=== PATIENT | male | born 1955 | race American Indian/Alaskan Native ===

== ENCOUNTER 2021-11-21 06:48 | Day surgery (SDC) | payer BC ==
[2021-11-16 13:28] LABS: Hematocrit 46.8 % (35.5-45.6); Hemoglobin 15.3 gm/dl (11.8-15.2); Mean Corpuscular HGB Conc 33 % (32-34); Mean Corpuscular Volume 86 fl (84-94); Platelet Count 252 K/mm3 (140-440); Red Blood Count 5.48 M/mm3 (3.65-5.03); Red Cell Distribution Width 14.5 % (13.2-15.2)
[2021-11-16 13:53] LABS: Alanine Aminotransferase 21 units/L (7-56); BUN/Creatinine Ratio 18; Blood Urea Nitrogen 18 mg/dL (9-20); Calcium 9.5 mg/dL (8.4-10.2); Hemolysis Index 11
[~2021-11-21 06:48] MED LIST: LACTATED RINGERS 1,000 ML IV SCH; MIDAZOLAM 2 MG/2 ML INJ IV NR
--- NOTE | 2021-11-21 07:41 | Anesthesia Consultation ---
Anesthesia Consult and Med Hx Date of service: 11/21/21 - Airway Anesthetic Teeth Evaluation: Good ROM Head & Neck: Adequate Mental/Hyoid Distance: Adequate Mallampati Class: Class II Intubation Access Assessment: Probably Good - Pre-Operative Health Status ASA Pre-Surgery Classification: ASA3 Proposed Anesthetic Plan: General - Pulmonary Hx Smoking: No Hx Respiratory Symptoms: No - Cardiovascular System Hx Hypertension: Yes Hx Heart Attack/AMI: No Hx Percutaneous Transluminal Coronary Angioplasty (PTCA): No Hx Cardia Arrhythmia: Yes (PVCs controlled with metoprolol) Hx Pacemaker: No Hx Internal Defibrillator: No Hx Valvular Heart Disease: No (mild hypertrophic cardiomyopathy; normal EF) - Central Nervous System CVA: No - Endocrine Hx Renal Disease: No Hx Liver Disease: No Hx Insulin Dependent Diabetes: No Hx Non-Insulin Dependent Diabetes: No Hx Thyroid Disease: No - Other Systems Hx Obesity: Yes (BMI 35) - Additional Comments Anesthesia Medical History Comments: No hx anesthetic complications. Most recent cardiac eval and studies on chart reviewed. : TTE normal EF, mild asymmetric LVH; negative stress test w/ frequent PVCs. 09/2021: holter monitor with low PVC burden.
--- NOTE | 2021-11-21 07:41 | Anesthesia Day of Surgery ---
Anesthesia Day of Surgery - Day of Surgery Patient Examined: Yes Patient H&P Reviewed: Yes Patient is NPO: Yes Beta Blockers: Yes
[2021-11-21] MEDS ORDERED: ONDANSETRON 4 MG/2 ML INJ IV PRN (08:00)
[2021-11-21] MEDS ORDERED: ceFAZolin/STERILE WATER 2 GM/20 ML SYRINGE IV NR (08:00)
[2021-11-21] MEDS ORDERED: GENTAMICIN/NS 80 MG/100 ML 100 ML IV SCH (08:00)
[2021-11-21] MEDS ORDERED: HYDROcodone/ACETAMINOPHEN 5-325 MG TAB PO PRN (08:00)
[2021-11-21] MEDS ORDERED: HYDROmorphone 0.5 MG/0.5 ML INJ IV PRN (08:00)
[2021-11-21] MEDS ORDERED: LIDOCAINE MPF (2%) 20 MG/1 ML VIAL 5 ML ONE (09:18)
[2021-11-21] MEDS ORDERED: ONDANSETRON 4 MG/2 ML INJ ONE (09:18)
[2021-11-21] MEDS ORDERED: propofoL 200 MG/20 ML VIAL IV ONE (09:19)
[2021-11-21] MEDS ORDERED: fentaNYL 100 MCG/2 ML INJ ONE (09:19)
[2021-11-21] MEDS ORDERED: LACTATED RINGERS 1,000 ML ONE (09:50)
[2021-11-21] MEDS ORDERED: WATER FOR IRRIG STERILE 2000 ML IR ONE (09:52)
--- NOTE | 2021-11-21 10:04 | Short Stay Summary ---
Short Stay Documentation Date of service: 11/21/21 - History H&P: obtained from office - Allergies and Medications Current Medications: Allergies No Known Allergies Allergy (Verified 11/14/21 16:03) Home Medications Medication Instructions Recorded Confirmed Last Taken Type Losartan/Hydrochlorothiazide 1 each PO DAILY 11/14/21 11/14/21 Unknown History [Losartan-Hctz 100-12.5 mg Tab] Metoprolol [Lopressor] 25 mg PO DAILY 11/14/21 11/14/21 Unknown History Active Medications Hydrocodone Bitart/Acetaminophen (Hydrocodone/Acetaminophen 5-325 Mg Tab) 2 each PO ONCE PRN PRN Reason: Pain, Moderate (4-6) Stop: 11/21/21 18:00 Cefazolin Sodium (Cefazolin/Sterile Water 2 Gm/20 Ml Syringe) 2 gm IV PREOP NR Stop: 11/21/21 19:00 Hydromorphone HCl (Hydromorphone 0.5 Mg/0.5 Ml Inj) 0.5 mg IV Q10MIN PRN PRN Reason: Pain , Severe (7-10) Stop: 11/21/21 18:00 Lactated Ringer's (Lactated Ringers) 1,000 mls @ 100 mls/hr IV DIRECT JULIENNE Stop: 11/21/21 23:59 Gentamicin Sulfate/Sodium Chloride (Gentamicin/Ns 80 Mg/100 Ml) 100 mls @ 200 mls/hr IV PREOP JULIENNE; Protocol Stop: 11/21/21 19:00 Midazolam HCl (Midazolam 2 Mg/2 Ml Inj) 2 mg IV PREOP NR Stop: 11/21/21 23:59 Ondansetron HCl (Ondansetron 4 Mg/2 Ml Inj) 4 mg IV ONCE PRN PRN Reason: Nausea And Vomiting Stop: 11/21/21 18:00 - Brief post op/procedure progress note Date of procedure: 11/21/21 Pre-op diagnosis: BPH, ELEVATED PSA, RT PROSTATE LESION ON MRI Post-op diagnosis: same Procedure: CYSTO, RPG, PUS 80CC, BX Anesthesia: GETA Surgeon: ZOEY ABREU Pathology: list (PROSTATE CORES) Specimen disposition: to lab Condition: stable - Hospital course Hospital course: POST OP INFO, BACTRIM & ULTRAM ON CHART - Disposition Condition at discharge: Stable Disposition: 01 HOME / SELF CARE / HOMELESS Short Stay Discharge Plan Follow up with: BABS MUNOZ MD [Primary Care Provider] - 7 Days
[2021-11-21] MEDS ORDERED: hydrALAZINE 20 MG/1 ML INJ IV NR (10:12)
[2021-11-21] MEDS ORDERED: hydrALAZINE 20 MG/1 ML INJ ONE (10:16)
--- NOTE | 2021-11-21 10:17 | Operative Report ---
DATE OF SURGERY: 11/21/2021 PREOPERATIVE DIAGNOSES: Elevated PSA, right prostate lesion on MRI, BPH. POSTOPERATIVE DIAGNOSES: Elevated PSA, right prostate lesion on MRI, BPH. PROCEDURES: Cystoscopy, bilateral retrograde pyelograms, prostate ultrasound and biopsy (80 grams). SURGEON: Melo Casillas MD ANESTHESIA: General. ESTIMATED BLOOD LOSS: Minimal. FLUIDS: Crystalloid. COMPLICATIONS: No complications. INDICATIONS: This patient is a 66-year-old gentleman, had been followed by my service for BPH and elevated PSA. He was previously seen by Dr. Bruce Chamorro where he underwent prostate biopsy years ago. Recent MRI suggested a right sided lesion. He presents now for further evaluation. He also has some BPH. Risks, benefits, complications were explained. DESCRIPTION OF PROCEDURE: The patient was taken to the operative suite, placed in supine position. After adequate general anesthesia, placed in the dorsal lithotomy position, prepped and draped in a sterile fashion. Pancystourethroscopy was performed with a 22-[place] Stor[place] cystoscope, no urethral abnormalities. His prostate displayed trilobar prostatic obstruction, moderate sized median lobe. No tumors or stones in the bladder. Both ureteral orifices in normal position. Bilateral retrograde pyelograms were obtained with an 8-[place] catheter and 8 mL of contrast. No filling defects or obstruction. Transrectal ultrasound, transverse and longitudinal imaging revealed no lesions and an 80-gram gland. Saturation biopsies were obtained, 2 cores per template using a 12-core template, base, mid and apex. The patient tolerated the procedure well. His rectal exam, it was BPH, but no lesions. He was extubated and taken to recovery room. He will go home on Bactrim and Ultram and follow up in the office. TID: [id number] RECEIPT: [id number] NIC/JOSSUE
[2021-11-21] MEDS ORDERED: hydrALAZINE 20 MG/1 ML INJ IV ONE (10:39)
--- NOTE | 2021-11-21 11:07 | Ultrasound Report ---
Ultrasound Transrectal INDICATION: PROSTATE BIOPSY. COMPARISON: None available. FINDINGS: Prostate measured volume was 68.5 cc. Imaging guidance for prostate biopsy performed. See operative n ote for full detail. Signer Name: Collin Bashir MD Signed: 11/21/2021 11:03 AM Workstation Name: [id number]
--- NOTE | 2021-11-21 11:17 | Fluoroscopy Report ---
6 fluoroscopic images submitted Indication: Intraoperative localization Impression: 6 images of the abdomen were submitted for documentation purposes with radiology involve ment. Bilateral retrograde pyelograms were performed utilizing approximately 50 mL of Omnipaque 300. Please refer to the operative note for complete details. Fluoroscopic time: 0.3 minutes Signer Name: Tian Alejandro MD Signed: 11/21/2021 11:13 AM Workstation Name: [id number]
[2021-11-21 11:58] VITALS: BP 161/87
[2021-11-21] MEDS ORDERED: cloNIDine 0.1 MG TAB PO ONE (12:00)
--- NOTE | 2021-11-21 12:46 | Post Anesthesia Evaluation ---
- Post Anesthesia Evaluation Patient Participated: Yes Airway Patent: Yes Stable Respiratory Function: Yes Nausea/Vomiting: No Temp > 96.8F: Yes Pain Manageable: Yes Adequeate Hydration: Yes Anesthesia Complications: No Other Comments: Hypertensive in PACU, asymptomatic. Did not take antihypertensives this morning but BP typically controlled on these. IV and PO antihypertensives given with modest improvement. Patient instructed to take usual dose of home meds after d/c.
== END 2021-11-21 12:45 | disposition home or self-care (01) ==
LOC: OR 06:48
PROVIDERS: ATTEND Urology
DX: R97.20 Elevated prostate specific antigen [PSA] (principal); N40.0 Benign prostatic hyperplasia without lower urinary tract symptoms; I42.9 Cardiomyopathy, unspecified; E78.00 Pure hypercholesterolemia, unspecified; E66.9 Obesity, unspecified; Z20.822 Contact with and (suspected) exposure to COVID-19; Z79.899 Other long term (current) drug therapy; Z98.890 Other specified postprocedural states; Z68.35 Body mass index [BMI] 35.0-35.9, adult
CPT/HCPCS: 36415; 52005; 55700; 74420; 76872; 80053; 85027; 88305; C1758; J0360; J0690; J1580; J2250; J2405; J2704; J3010; J7120; Q9967; U0003